=== PATIENT | female | born 1985 | race Caucasian/White ===

== ENCOUNTER 2023-06-27 10:35 | Emergency (ER) | payer MEDICARE, MEDICAID | END 2023-06-27 13:00 | LOC: KA.ED 10:35 | DX: K86.89 Other specified diseases of pancreas (principal); K94.23 Gastrostomy malfunction; E78.00 Pure hypercholesterolemia, unspecified; J44.9 Chronic obstructive pulmonary disease, unspecified; K21.9 Gastro-esophageal reflux disease without esophagitis; E11.9 Type 2 diabetes mellitus without complications; Z86.711 Personal history of pulmonary embolism; Z79.01 Long term (current) use of anticoagulants; Z79.899 Other long term (current) drug therapy | CPT/HCPCS: 99284 ==